=== PATIENT | female | born 1935 | race Caucasian/White ===

== ENCOUNTER 2016-06-10 17:04 | Inpatient (IN) | payer OTHER ==
[2016-06-10] MEDS ORDERED: NORMAL SALINE 10 ML SYRINGE FLUSH IVP PRN ×2 (17:17→21:52)
[2016-06-10] MEDS ORDERED: Sodium Chloride 0.9% 1,000 ML PRIMARY IV ONE (17:17)
--- NOTE | 2016-06-10 17:22 | PDOC ---
Gen Adult / Medical Screen HPI - General Chief Complaint: General Medical Stated Complaint: CANNOT CARE FOR SELF/ NOT EATING Date Seen by Provider: 06/10/16 Time Seen by Provider: 17:19 Source: POSITIVE: Patient, Other (Family) Nurse's Notes Reviewed & Considered: Yes - History of Present Illness Initial Comments: Basia is an 81-year-old female who presents to the emergency department with generalized weakness. History is obtained from both patient and family. They indicate that over the last few weeks she has had a decline. She is generally weak. There is no focal deficit. Patient was seen by her primary care provider and outpatient setting of thought to be mildly dehydrated. She has a history of severe alcohol abuse however has been abstaining since 2011. She had been started on Risperdal a few months prior and seems to have developed some repetitive lip and tongue motions along with head motion. There is no evidence of fever, cough, chest pain. Patient did describe a mild ache in her right shoulder and apparently has had a history of prior untreated shoulder dislocation. - Patient Home Medications Home Medications: Home Medications Risperidone [Risperdal] 0.5 mg PO BID #60 tab 01/16/16 - Patient Allergies Allergies/Adverse Reactions: Allergies Allergy/AdvReac Type Severity Reaction Status Date / Time No Known Allergies Allergy Verified 06/10/16 17:06 Past Medical History - heen HEENT History: Denies History Cardiovascular History: Denies History Respiratory History: Denies History Gastrointestinal History: Denies History Genitourinary History: Denies History Endocrine History: Denies History Musculoskeletal History: Denies History Prosthesis or Implant: No Neurological History: Other (please comment) 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 Blood Disorders: Denies History Psychiatric History: Denies History History of Sexually Transmitted Diseases: No Female Reproductive History: Denies History Obstetrical History: Denies History Cancer History: Denies History In Past Year Been Physically Harmed or Verbally Threatened: No History of MDRO: Unknown Tobacco Use: Never Smoker Alcohol Use: Other (History of prior heavy alcohol use. Currently abstaining.) Substance Use Type: None Previous Surgical History: Yes Type / Date of Surgery: hysterectomy Anesthesia Reactions: No Malignant Hyperthermia: No Significant Family History: No pertinent family hx Past Medical History Reviewed: Reviewed - Changes Made ROS - Limitations ROS Limitations: Mental Impairment Constitution: DENIES: Chills, Fever Cardiovascular: DENIES: Chest Pain Respiratory: REPORTS: Denies Resp Symptoms Neurological: REPORTS: Weakness Gastrointestinal: REPORTS: Denies GI Symptoms Endocrine: REPORTS: Fatigue Musculoskeletal: REPORTS: Other (Right shoulder pain) Genitourinary: REPORTS: Denies Symptoms Eyes: REPORTS: Denies Symptoms ENT: REPORTS: Other (Dry mouth) Skin: REPORTS: Denies Skin Symptoms Lympathic: REPORTS: Denies Lympathic Symptoms Gen Adult/Medical Screen Exam - General Appearance General Appearance: POSITIVE: Alert, No Acute Distress, Other (Disheveled) - HEENT HEENT: POSITIVE: Other (Patient has dry mucous membranes. Pupils are equal round reactive to light. There is repetitive movements of the mouth and tongue. ) - Pupils Pupil Size: 3 mm: Bilateral - Neck Neck: POSITIVE: Normal Inspection - Respiratory Respiratory: POSITIVE: No Respiratory Distress - Cardiovascular Cardiovascular: POSITIVE: Regular Rate & Rhythm - Abdomen Abdomen: Soft: (All Quadrants), Normal Bowel Sounds: (All Quadrants), Denies Tenderness: (All Quadrants), No Splenomegaly: (All Quadrants), No Hepatomegaly: (All Quadrants), No Guarding: (All Quadrants), No Rebound: (All Quadrants) - Neurological / Psychological Mental Status: POSITIVE: Slow Response to Command - Skin Skin: POSITIVE: Normal Color, Dry - Extremities Additional Extremities Details: Minimal discomfort to palpation of the right shoulder. There is limited range of motion of the shoulder secondary to chronic injury. No focal deficit or tenderness. Gen Adlt/Medical Scrn Progress - Results Reviewed by me Xrays/CTs/US Reviewed by me: Yes Lab Results Reviewed: Yes Lab Results:: Laboratory Results 06/10/16 Range/Units 17:30 WBC 9.85 (4.8-10.8) 10^3/uL RBC 4.90 (4.20-5.40) 10^6/uL Hgb 14.8 (12.0-16.0) g/dL Hct 43.6 (37.0-47.0) % MCV 89.0 (81-99) FL MCH 30.2 (27-31) PG MCHC 33.9 (33-37) g/dL RDW Std Deviation 45.2 (39-50) fL RDW Coeff of Jacoby 14.2 (11.5-14.5) % Plt Count 276 (140-350) 10*3/uL MPV 9.4 (7.4-12.2) FL Immature Gran % (Auto) 0.1 (0-5) % Neut % (Auto) 82.4 H (50-80) % Lymph % (Auto) 9.7 L (10-50) % [place] % (Auto) 7.0 (5-15) % Eos % (Auto) 0.6 (0-8) % Baso % (Auto) 0.2 (0-1) % Immature Gran # (Auto) 0.01 10*3/UL Neut # (Auto) 8.11 10*3/UL Lymph # (Auto) 0.96 10*3/uL [place] # (Auto) 0.69 (0.3-0.8) 10*3/UL Eos # (Auto) 0.06 10*3/UL Baso # (Auto) 0.02 10*3/UL WBC Morphology Comment Normal morphology (NORM) Plt Morphology Comment Normal morphology (NORM) RBC Morph Comment Normal morphology (NORM) Sodium 140 (135-145) meq/L Potassium 4.1 (3.8-5.2) meq/L Chloride 103 (98-112) meq/L Carbon Dioxide 24 (23-33) meq/L Anion Gap 13 (5-20) BUN 21 (7-22) mg/dL Creatinine 0.7 (0.50-1.20) mg/dL Estimated GFR (>60 ml/min/1.73m(2)) BUN/Creatinine Ratio 30.00 H (6-20) Glucose 153 H (78-110) mg/dL Calculated Osmolality 295.0 H (267-292) mOsm/kg Calcium 9.7 (8.7-10.7) mg/dL Magnesium 2.0 (1.6-2.4) mg/dL Total Bilirubin 0.6 (0.3-1.2) mg/dL AST 22 (8-39) IU/L ALT 17 (9-52) IU/L Alkaline Phosphatase 46 (38-126) IU/L Troponin I < 0.012 (< 0.040) ng/mL Total Protein 7.2 (6.1-8.0) g/dL Albumin 4.0 (3.5-4.8) g/dL Globulin 3.1 (2.50-4.10) g/dL Albumin/Globulin Ratio 1.20 L (1.3-2.0) mg/g - Patient's Progress MDM / ED Course: Basia is an 81-year-old female who presents to the emergency department for generalized weakness. Her vital signs are unremarkable and examination demonstrates elderly dehydrated appearing female. Differential diagnosis includes but is not limited to urinary tract infection, ACS, shoulder injury, chronic pain, failure to thrive. Patient's urinalysis is pending at this time. Otherwise laboratory studies are largely reassuring. She was given a bolus of normal saline. X-ray of the right shoulder demonstrates dislocation which per the family this is chronic and untreated. Twelve-lead EKG and troponin were both negative for acute ischemia. Patient did have movements of her face and tongue which are concerning for tardive dyskinesia. She is on an antipsychotic medication which puts her at risk for this. This appears to be a subacute problem. Given patient's failure to thrive status and inability to care for herself at her apartment she will be admitted for further care. I spoke with the hospitalist who will take over care from this point. - Consult Consult (If Yes, Name of Consulting MD & Time Called): Yes (Fars) Consulting MD will see pt:: POSITIVE: [facility] [place] Admit Patient Care Time - Estimated PCT Patient Care Time (In Minutes): 45 Vital Signs - Recent Vital Signs Vital Signs: Vital Signs (Last 8 hours) Temp Pulse Pulse Resp BP Pulse Ox 06/10/16 17:31 94 06/10/16 17:06 97.0 F 117 H 16 152/73 92 - VS Reviewed Vital Signs Reviewed: Yes Discharge Clinical Impression: Failure to thrive Qualifiers: Failure to thrive age range: in adult Qualifier Code: (R62.7) Adult failure to thrive Discharge Disposition: Admit to Observation Condition: Fair Date Decision to Admit to Inpatient: 06/10/16 Time Decision to Admit to Inpatient: 18:38
--- NOTE | 2016-06-10 17:34 | EKG ---
[address] [address] Measurements Intervals [place] Rate: 94 P: 88 ME: 145 QRS: 81 QRSD: 72 T: 59 QT: 324 QTc: 376 Interpretive Statements SINUS RHYTHM NONSPECIFIC ST & T-WAVE ABNORMALITY MARKED 60 CYCLE ARTIFACT No previous ECG available for comparison Electronically Signed On 06-11-16 12:28:39 MDT by Raheem Maya [email or web address]
[2016-06-10 17:44] LABS: BASOPHILS # (AUTO) 0.02 10*3/UL; BASOPHILS % (AUTO) 0.2 % (0-1); EOSINOPHILS # (AUTO) 0.06 10*3/UL; EOSINOPHILS % (AUTO) 0.6 % (0-8); HEMATOCRIT 43.6 % (37.0-47.0); HEMOGLOBIN 14.8 g/dL (12.0-16.0); LYMPHOCYTES # (AUTO) 0.96 10*3/uL; MEAN CORPUSCULAR HEMOGLOBIN 30.2 PG (27-31); MEAN CORPUSCULAR HGB CONC 33.9 g/dL (33-37); MEAN PLATELET VOLUME 9.4 FL (7.4-12.2); MONOCYTES # (AUTO) 0.69 10*3/UL (0.3-0.8); NEUTROPHILS # (AUTO) 8.11 10*3/UL; NEUTROPHILS % (AUTO) 82.4 % (50-80)
[2016-06-10 17:52] LABS: PLATELET MORPHOLOGY COMMENT NORMAL MORPHOLOGY (NORM); RBC MORPHOLOGY COMMENT NORMAL MORPHOLOGY (NORM); WBC MORPHOLOGY COMMENT NORMAL MORPHOLOGY (NORM)
[2016-06-10 17:57] LABS: CALCIUM 9.7 mg/dL (8.7-10.7)
--- NOTE | 2016-06-10 19:37 | DI ---
RIGHT SHOULDER, 06/10/2016 5:23 PM: Clinical History: Right shoulder pain. Previous Exam: 08/28/2008, which was actually a 2 view study of the right humerus. 2 views are submitted. There is an anterior subcoracoid dislocation of the right humeral head. The AC joint and the limited views of the right lung are normal. There is osteoporosis. Readin. Anterior subcoracoid dislocation of the right humerus. 2. Osteoporosis.
--- NOTE | 2016-06-10 20:24 | PDOC ---
History and Physical - History of Present Illness Chief Complaint: Failure to thrive weakness History of Present Illness: Is a very nice 81-year-old female with past medical history significant for heavy alcohol abuse in the past she has been sober since 2011 but according to the daughter her memory has worsened over the years and really unable to function as well as she did she helps her with her food and she only uses the microwave. She does not complain of any nausea vomiting pain. She has generalized weakness and therefore was brought to the ER he was started on Risperdal a few months prior she seems to have developed some repetitive the mouth motions with opening her mouth and her lips patient has no evidence of any acute findings and her labs she does have chronic right shoulder pain and this is been chronically dislocated but she does not complain of this right now she is a DO NOT RESUSCITATE. She is not able to give a good history at all answers a few questions Past Medical History Medical History: Remote history of alcohol abuse, dementia Tobacco Use: Never Smoker Substance Use Type: None Alcohol Use: Sober Medication / Allergies Home Medications: Home Medications Medication Instructions Recorded Confirmed Type Risperidone [Risperdal] 0.5 mg PO BID #60 tab 01/16/16 06/10/16 Clinic Allergies/Adverse Reactions: Allergies Allergy/AdvReac Type Severity Reaction Status Date / Time No Known Allergies Allergy Verified 06/10/16 17:06 Review of Systems - Review of Systems All Systems: Reviewed & No Additional Complaints Except as Stated - Respiratory Respiratory: DENIES: Negative System Review, Cough, Sputum, Dyspnea At Rest, Dyspnea with Exertion, Pleuritic Pain, Hemoptysis, Wheezing, Other, See HPI - Gastrointestinal Gastrointestinal / Abdominal: DENIES: Negative System Review, Nausea, Vomiting, Diarrhea, Constipation, Abdominal Pain, Bloody Stool, Poor Appetite, Heartburn, Regurgitation, Bloating, Lactose Intolerance, Melena, Bright Red Blood Per Rectum, Other, See HPI - Neurological Neurologic: REPORTS: Memory Loss Exam - Vitals Vital Signs: Vital Signs Temperature 98.4 F Temperature Source Temporal Artery Scan Pulse Rate [Pulse Oximeter 67 Right] Pulse Rate 76 Respiratory Rate 22 Blood Pressure 137/77 Pulse Ox 93 Oxygen Delivery Method Room Air Height 5 ft 7 in Weight 54.068 kg - General General Appearance: POSITIVE: No Acute Distress, Cooperative - Head Head Exam: POSITIVE: Normal Inspection, Normocephalic, Atraumatic - Respiratory Respiratory Exam: POSITIVE: Clear to Auscultation - Bilaterally, Breathing Non Labored, Normal To Percussion, Normal to Percussion and Palpation - Cardiovascular Cardiovascular Exam: POSITIVE: RRR, No Murmur, No Clicks, No Gallops - GI/Abdominal GI/Abdominal Exam: POSITIVE: Normal Bowel Sounds, Non Tender, Non Distended, Soft - Extremities Extremities Exam: POSITIVE: No Clubbing Present, No Edema Present, No Cyanosis Present - Neurological Neurological Exam: POSITIVE: Alert, No Facial Droop Additional Neurological Exam Details: Repetitive the mouth and tongue movements does not talk much Results - Labs CBC and BMP: 06/10/16 17:30 06/10/16 17:30 Assessment and Plan - Patient Problems (1) Failure to thrive Current Visit: Yes Status: Acute Comment: Consult PTOT hydrate with IV fluids Qualifiers: Failure to thrive age range: in adult Qualifier Code(s): (R62.7) Adult failure to thrive (2) History of alcohol abuse Current Visit: Yes Status: Acute Comment: Sober since 2011 january Aaron Photo / Body Diagrams - Uploaded Photos Uploaded Photos:
[2016-06-10] MEDS ORDERED: ONDANSETRON 4 MG/2 ML VIAL IVP PRN (21:52)
[2016-06-10] MEDS ORDERED: LIDOCAINE W/ SODIUM BICARB 0.5 ML SYR SUBD PRN (21:52)
[2016-06-10] MEDS ORDERED: HYDROcodone-APAP 5 MG -325 MG TABLET PO PRN (21:52)
[2016-06-10] MEDS ORDERED: BISACODYL 5 MG TABLET PO PRN (21:52)
[2016-06-10] MEDS: Sodium Chloride 0.9% 1,000 ML PRIMARY IV SCH (22:21)
[2016-06-11] MEDS: Sodium Chloride 0.9% 1,000 ML PRIMARY IV SCH ×2 (05:36→14:52)
--- NOTE | 2016-06-11 11:46 | PTI REPORT ---
Thank you for the referral of Basia Trujillo. She was seen on 06/11/16 for an inpatient evaluation secondary to failure to thrive. SUBJECTIVE: The patient is an 81-year-old female. The patient reports her right arm is bothering her; she is right handed and has the IV placed there. The patient states she fell at her daughter's house, landing on her right arm a long time ago and it has been aching since. The patient denies any pain at this time. The patient states she lives alone at the [facility]. She states she does not cook; she eats mostly TV dinners but has no appetite. She has someone that comes and helps clean, bathe, and complete ADLs and laundry. The patient also reports having falling multiple times with the most recent happening February 29, 2016. The patient denies hitting her head or fractures. PAST MEDICAL HISTORY: Past medical history can be found in the patient's medical record. OBJECTIVE FINDINGS: General observations: The patient states she gets mildly confused at times but is alert and oriented x3. Range of motion: Range of motion of bilateral lower extremities are within functional limits. Strength: Manual muscle testing revealed 3/5 bilateral hip strength, 2+/5 bilateral hip abduction and adduction, knee extension and flexion were 3/5 throughout, and dorsiflexion was 3+/5 on the right and 3/5 on the left. Transfers: The patient was able to complete sit to stand transfer from chair to four point walker with contact guard assist. Ambulation: The patient was able to ambulate 80 feet with contact guard assist and four point walker. Balance: The patient has good minus sitting static balance and good minus standing static balance. The patient was able to complete a Romberg of 30 seconds with eyes open. ASSESSMENT: The patient has subjective and objective findings consistent with generalized weakness and would benefit from continued skilled therapy and consultation for possible skilled care facility for long term care phlebotomist placement. Short-Term Goals: To be met by discharge from inpatient: Patient will be able to demonstrate 3/5 bilateral lower extremity strength throughout. Patient will be able to complete sit to stand transfer with least restrictive assistive device and supervision. Patient will be able to ambulate 150 feet with least restrictive assistive device and contact guard assist. Long-Term Goals: To be met following discharge from inpatient: Patient will demonstrate 3+ to 4/5 bilateral lower extremity strength for safety with transfers and ambulation. Patient will be able to complete all transfers with independence to least restrictive assistive device. Patient will be able to ambulate 300 feet for community ambulation with least restrictive assistive device. TREATMENT PLAN: Patient will be seen B.I.D during the week and one time per day over the weekend as an inpatient to address the above goals and objectives. INITIAL TREATMENT: Treatment today consisted of the initial evaluation with occupational therapy. The patient performed ambulation, range of motion, and manually resisted activities. Ambulation was with four point walker and contact guard assist. The patient was left in her room with call button within reach in no apparent distress. Nursing was notified. TISHA
--- NOTE | 2016-06-11 12:04 | PDOC(PROG) ---
Interval History: Patient is doing great today much better than yesterday she is speaking in full sentences has no complaints no nausea vomiting chest pain she has been falling at home does not feel safe to be discharged home and would like to go the skilled nursing at this point Objective : Data - Labs CBC and BMP: 06/10/16 17:30 06/10/16 17:30 Objective : Exam - General General Appearance: Cooperative - Neck Neck Exam: Normal Inspection, Full ROM - Respiratory Respiratory Exam: Clear to Auscultation - Bilaterally, Breathing Non Labored, Normal To Percussion - Cardiovascular Cardiovascular Exam: RRR, No Murmur, No Clicks, No Gallops - GI/Abdominal GI/Abdominal Exam: Normal Bowel Sounds, Non Tender, Non Distended, Soft - Extremities Extremities Exam: No Clubbing Present, No Edema Present - Neurological Neurological Exam: Alert, Oriented x 3, CN II-XII Intact Assessment and Plan - Patient Problems (1) Failure to thrive Current Visit: Yes Status: Acute Comment: Patient unable to take care of herself at home social media campaign manager was consult did do for possible skilled nursing admission patient is not in any pain and is doing well this morning Qualifiers: Failure to thrive age range: in adult Qualifier Code(s): (R62.7) Adult failure to thrive (2) History of alcohol abuse Current Visit: Yes Status: Acute Comment: Patient has been sober since 2011 Photo / Body Diagrams - Uploaded Photos Uploaded Photos:
--- NOTE | 2016-06-11 16:25 | PT.PROG ---
Progress Note Progress Note: S. Patient agreed to do therapy this afternoon. O. Patient performed exercises in the form of; heel toe raises, marches, long arc quads, pillow squeezes and clamshells all x 10 bilaterally, sit to stands x 5. Patient ambulated 30 feet around her room where she was left in bed with alarm and call light. A. Patient required frequent verbal cues for encouragement. She required mod assist with sit to stand transfers and ambulation. Patient would continue to benefit from skilled therapy to increase strength, mobility and endurance. P. continue POC.
[2016-06-11] MEDS ORDERED: NS IV ONE ×5 (20:00)
[2016-06-11] MEDS ORDERED: KCL IV ONE ×5 (20:00)
[2016-06-11] MEDS ORDERED: [UNRECOGNIZED DRUG - OTHER] IV ONE ×5 (20:00)
[2016-06-11] MEDS ORDERED: FOLIC ACID IV ONE ×5 (20:00)
[2016-06-11] MEDS ORDERED: THIAMINE IV ONE ×5 (20:00)
[2016-06-11] MEDS: BENZTROPINE 1 MG TABLET PO SCH (20:56)
[2016-06-11] MEDS: QUEtiapine Tab 25 MG TAB PO SCH (20:58)
[2016-06-12] MEDS: BENZTROPINE 1 MG TABLET PO SCH ×2 (09:25→20:59)
[2016-06-12 09:53] LABS: BASOPHILS # (AUTO) 0.04 10*3/UL; BASOPHILS % (AUTO) 0.5 % (0-1); EOSINOPHILS # (AUTO) 0.18 10*3/UL; EOSINOPHILS % (AUTO) 2.2 % (0-8); HEMATOCRIT 44.2 % (37.0-47.0); HEMOGLOBIN 14.8 g/dL (12.0-16.0); LYMPHOCYTES # (AUTO) 0.82 10*3/uL; MEAN CORPUSCULAR HEMOGLOBIN 30.2 PG (27-31); MEAN CORPUSCULAR HGB CONC 33.5 g/dL (33-37); MEAN CORPUSCULAR VOLUME 90.2 FL (81-99); MEAN PLATELET VOLUME 9.2 FL (7.4-12.2); MONOCYTES # (AUTO) 0.62 10*3/UL (0.3-0.8); MONOCYTES % (AUTO) 7.5 % (5-15); NEUTROPHILS # (AUTO) 6.55 10*3/UL; NEUTROPHILS % (AUTO) 79.7 % (50-80)
[2016-06-12 09:56] LABS: PLATELET MORPHOLOGY COMMENT NORMAL MORPHOLOGY (NORM); RBC MORPHOLOGY COMMENT NORMAL MORPHOLOGY (NORM); WBC MORPHOLOGY COMMENT NORMAL MORPHOLOGY (NORM)
[2016-06-12 10:02] LABS: CALCIUM 8.6 mg/dL (8.7-10.7); SERUM ALBUMIN 3.8 g/dL (3.5-4.8)
--- NOTE | 2016-06-12 11:41 | PT.PROG ---
Progress Note Progress Note: S. Patient stated that she is feeling better after having a shower. Patient agreed to do therapy in her room this morning. O. Patient performed seated long arc quads, heel toe raises, marches, pillow squeezes, clamshells, resisted knee flexion all x 10 bilaterally. Sit to stands x 10. Patient was left in her chair with alarm and call light. A. Patient tolerated exercises well, she continues to require min-mod assist with transfers and would continue to benefit from skilled therapy to increase strength and mobility. P. Continue POC.
--- NOTE | 2016-06-12 11:49 | PDOC(PROG) ---
Interval History: Patient seems to be doing better I believe even with her tardive dyskinesia. I did discuss the case with the occupational therapy her swallowing seems to be improving as well she still has memory issues and dementia but is pleasant and cooperative Objective : Data - Labs CBC and BMP: 06/12/16 09:46 06/12/16 09:46 Labs - Last 24 Hours: Laboratory Results 06/12/16 Range/Units 09:46 WBC 8.22 (4.8-10.8) 10^3/uL RBC 4.90 (4.20-5.40) 10^6/uL Hgb 14.8 (12.0-16.0) g/dL Hct 44.2 (37.0-47.0) % MCV 90.2 (81-99) FL MCH 30.2 (27-31) PG MCHC 33.5 (33-37) g/dL RDW Std Deviation 46.4 (39-50) fL RDW Coeff of Jacoby 14.3 (11.5-14.5) % Plt Count 264 (140-350) 10*3/uL MPV 9.2 (7.4-12.2) FL Immature Gran % (Auto) 0.1 (0-5) % Neut % (Auto) 79.7 (50-80) % Lymph % (Auto) 10.0 (10-50) % [place] % (Auto) 7.5 (5-15) % Eos % (Auto) 2.2 (0-8) % Baso % (Auto) 0.5 (0-1) % Immature Gran # (Auto) 0.01 10*3/UL Neut # (Auto) 6.55 10*3/UL Lymph # (Auto) 0.82 10*3/uL [place] # (Auto) 0.62 (0.3-0.8) 10*3/UL Eos # (Auto) 0.18 10*3/UL Baso # (Auto) 0.04 10*3/UL WBC Morphology Comment Normal morphology (NORM) Plt Morphology Comment Normal morphology (NORM) RBC Morph Comment Normal morphology (NORM) Sodium 143 (135-145) meq/L Potassium 4.0 (3.8-5.2) meq/L Chloride 108 (98-112) meq/L Carbon Dioxide 26 (23-33) meq/L Anion Gap 9 (5-20) BUN 14 (7-22) mg/dL Creatinine 0.7 (0.50-1.20) mg/dL Estimated GFR (>60 ml/min/1.73m(2)) BUN/Creatinine Ratio 20.00 (6-20) Glucose 76 L (78-110) mg/dL Calculated Osmolality 295.0 H (267-292) mOsm/kg Calcium 8.6 L (8.7-10.7) mg/dL Total Bilirubin 0.5 (0.3-1.2) mg/dL AST 22 (8-39) IU/L ALT 17 (9-52) IU/L Alkaline Phosphatase 45 (38-126) IU/L Total Protein 6.8 (6.1-8.0) g/dL Albumin 3.8 (3.5-4.8) g/dL Globulin 3.1 (2.50-4.10) g/dL Albumin/Globulin Ratio 1.20 L (1.3-2.0) mg/g TSH 4.13 (0.2700-4.2000) uIU/mL Objective : Exam - General General Appearance: Cooperative - Head Head Exam: Normocephalic, Atraumatic - Eye Eye Exam: EOMI - Respiratory Respiratory Exam: Clear to Auscultation - Bilaterally, Breathing Non Labored, Normal To Percussion - Cardiovascular Cardiovascular Exam: RRR, No Murmur, No Clicks, No Gallops - GI/Abdominal GI/Abdominal Exam: Non Tender, Non Distended, Soft - Extremities Extremities Exam: No Clubbing Present, No Edema Present, No Cyanosis Present - Psychiatric Psychiatric Exam: Normal Mood Assessment and Plan - Patient Problems (1) Failure to thrive Current Visit: Yes Status: Acute Qualifiers: Failure to thrive age range: in adult Qualifier Code(s): (R62.7) Adult failure to thrive (2) History of alcohol abuse Current Visit: Yes Status: Acute (3) 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 Deni ann psychiatry at [facility] most likely severe dysphasia that the patient has might be due to the Risperdal recommended to stop it give the patient Cogentin and start Seroquel 25 to be at bedtime I did ask the patient she does not remember that she has schizophrenia looking back in the records I cannot see a psychiatry visit diagnosis of this I did see she was put on Risperdal some years back by a physician there is no longer here she was not doing as well and they decided to restart the Risperdal. Patient is unable take care of herself any longer and is awaiting placement for [facility] I am given her vitamins banana bags I did check her thyroid which was in normal limits I also ordered a B12 level Photo / Body Diagrams - Uploaded Photos Uploaded Photos:
--- NOTE | 2016-06-12 12:10 | OT.PROG ---
Progress Note Progress Note: S: pt stated she wanted a shower. O: pt seen in her room in the a.m. and completed ADL dressing with Min-Mod A and completed transfer to restroom with CGA for safety. She completed all toileting Ind and ADL hygiene at sink Ind. She returned to her chair and completed UE AROM activities including shoulder flex, bicep flex, and completed x3 sit to stands. Pt was also assisted with adjustments of walker. pt was left in chair with with chair alarm on. A: pt participated well, continue to work on balance/strengthening and swallowing. Preparation for admission to [facility]. P: continue per plan of care.
--- NOTE | 2016-06-12 14:20 | PT.PROG ---
Progress Note Progress Note: S. Patient stated that she was not feeling up to going to therapy this afternoon , she reported she would do exercises in her room. O. Patient performed supine exercises in the form of; heel slides, quad sets, ankle pumps, short arc quads, hip abduction/adduction, and bridges all x 10 bilaterally. Patient was left in bed with alarm and call light. A. Patient tolerated exercises fair, She continues to struggle with weakness and immobility. Patient would continue to benefit from skilled therapy to increase strength, mobility and endurance. P. Continue POC.
--- NOTE | 2016-06-12 16:09 | OTI REPORT ---
Thank you for the referral of Basia Trujillo. She was seen on 06/11/16 for an occupational therapy inpatient evaluation secondary to generalized weakness. SUBJECTIVE: The patient is an 81-year-old female. The patient's medical report states that the patient abused alcohol for most of her life and quit drinking approximately five years ago. The patient's daughter has stated that the patient is having increased memory difficulties. The patient reports that she lives at the [facility]. She reports that she is having increased falls at home. She states she is scared to live by herself and she states she is having increased difficulty living by herself. The patient repots that she usually eats frozen dinners but reports difficulty eating them because food gets stuck in her throat. The patient has difficulty using utensils as her arms shake so bad that she can't hold the food onto her fork or spoon at times. The patient also fell down the stairs at her daughter's house and dislocated her shoulder at one point in time. She reports that her toes and her fingers are numb. The patient also reports that she has increased blurriness in her eyes and she is having a lot of increased difficulty being able to see. She says that her daughter sets up her medications to take on a weekly basis but because of her shakiness in her hands, she drops her medications frequently. She states at times she is able to take them and at times she cannot find them. In her home the patient has assistance with house cleaning and bathing. Her daughter gets her groceries and she has someone else drive her to other places such as her daughter's home. The patient is definitely having difficulties at home. She states that she is very open to going to a 24-hour care facility such as [facility] because she knows at this point in time it is difficult for her to care for herself and she is scared that she is going to continue to fall in her home. The patient usually uses a four wheeled walker with a seat, but she says even when trying to turn in that she has fallen. PAST MEDICAL HISTORY: Past medical history can be found in the patient's medical record. OBJECTIVE FINDINGS: General observations: Today the patient demonstrated a lot of tardive dyskinesia ; tremors and movements of her neck, face, and tongue as well as her upper extremities. Just sitting in chair the patient was not able to hold still. She moves constantly. Range of motion: The patient demonstrated limited motion in her shoulder. She had 0 to 60 degrees of active flexion and 0 to 40 degrees of abduction. Passively the therapist was able to get the shoulders to 90 degrees and there was a lot of crepitus and popping secondary to arthritis. The patient has within functional limits for elbow flexion but is lacking 20 degrees of elbow extension in bilateral elbows. Her wrists have approximately 50% of active range of motion. Strength: Strength in her shoulders within her available range of motion is 2+/ 5. Strength for elbow flexion/extension is 3/5. Strength for wrist flexion/ extension is 3+/5. The patient has limited retail merchandising manager strength. She is able to oppose her thumb to each fingers but it takes increased time secondary to her tardive dyskinesia. Transfers: The patient was able to complete sit to stands with contact guard to min assist. Activities of daily living: The patient has difficulty with dressing herself secondary to the tremors. At this point the patient requires mod assist for lower extremity dressing. She requires min assist for upper extremity dressing. ASSESSMENT: Problem List: Decreased strength Decreased range of motion Decreased balance Decreased ability to perform transfers Decreased ability to perform ADLs Patient would benefit from a swallow assessment as she has reported difficulty with her swallowing Patient would benefit from cognitive assessment as she is demonstrating a decrease in cognitive function per her daughter's report Short-Term Goals: To be met by discharge from inpatient: Patient will be able to dress self independently after set up. Patient will have a swallow evaluation completed. Patient will be able to feed herself independently. Patient will be able to complete hygiene activities while standing without loss of balance independently. Patient will be able to complete functional fine motor tasks independently or with modified independence as the patient does have a lot of tremors. Patient will be able to complete a toilet transfer independently. Patient will shower self with contact guard assist. Long-Term Goals: To be met following discharge from inpatient: Patient will be discharged to a 24-hour care facility to improve her safety. TREATMENT PLAN: Patient will be seen B.I.D during the week and one time per day over the weekend as an inpatient to address the above goals and objectives. INITIAL TREATMENT: Treatment today consisted of the initial evaluation followed by active range of motion of shoulders, elbows, and wrists x10. We attempted lower extremity dressing; the patient required mod assist secondary to poor balance. The patient had difficulty donning socks. The patient also completed bed mobility with mod assist. TISHA
--- NOTE | 2016-06-12 16:59 | OTI REPORT ---
Thank you for the referral of Basia Trujillo. She was seen on 06/11/16 for a swallow evaluation. SUBJECTIVE: The patient is an 81-year-old female who is being seen today for a swallow evaluation secondary to verbalizing earlier today that she was having a lot of difficulty swallowing her food. She reports that food gets stuck in her throat. She does not eat full meals as she is not able to swallow all of it. Also, she is having pre-feeding concerns as the patient reports that food falls off of her fork and spoon quite frequently because of the tremors that she is demonstrating. PAST MEDICAL HISTORY: Past medical history can be found in the patient's medical record. OBJECTIVE FINDINGS: Pre-Swallow Assessment: Alertness and responsiveness: The patient was alert and responsive. Reliable responses: It was questionable whether the patient's responses were reliable. Facial symmetry: The patient did demonstrate facial symmetry. Volitional dry swallow: The patient did demonstrate a volitional dry swallow. Following directions: The patient was able to follow one step directions but not two step directions. Nutrition and intake method over the last 24-hours: This has been hard to assess at the patient's house. She reports that she does not eat well. Secretions: The patient did demonstrate some drooling on the right side of her mouth and had difficulty handling some of her secretions. Dentition: The patient has dentures on the top but does not have dentures on the bottom. Voice quality: The patient's voice quality is quite weak. She is very soft spoken but she also has difficulty answering questions secondary to the tardive dyskinesia. Posture: The patient demonstrates good posture; however, she is always in high muscle tone because of the tardive dyskinesia and the tremors that she is demonstrating. You can see the muscles of her neck being continually contracted. Tongue range of motion/Strength: The patient's tongue range of motion and strength are poor. Her tongue demonstrates rolling at times and she has difficulty moving it to the lateral components of the mouth. Coordination: The patient's coordination is poor. Head control: The patient's head control is very poor. She hash continuous movement of neck flexion and extension that does not stop and she is not able to consciously make her head stop. Jaw mobility: Jaw mobility is fair to poor. Her jaw is constantly moving as well as she opens and closes her mouth. Lip control: Lip control is fair. She did demonstrate some drooling out of the right side of her mouth. The patient has poor lingual function, not only for speaking but also for coordination of chewing food. Sensation: Sensation was difficult to assess as the patient did not give good responses to this. Gag reflex: The patient's gag reflex was hypo-active. General observations: The patient does demonstrate some apraxia and possible tardive dyskinesia. The patient was a willing participating and was willing to try any task asked of her today during the assessment. Feeding Assessment: The patient's automatic swallow was impaired. It takes her a while to get the bolus prepared to swallow. Laryngeal elevation is missing approximately 25% of superior movement. Today the staff had ordered the patient lunch including chicken strips, mashed potatoes and gravy, and ice cream. The patient reported that she was not able to eat the chicken strips as she would not be able to chew and swallow this. The therapist brought in some weighted silverware. The patient reported that this helped her immensely in decreasing the tremors and keeping the food on her fork and or spoon. Cut up hamburger with gravy was ordered. The hamburger was cut in 1-1.5 inch cubes. On the first attempt to swallow the meat the patient coughed and choked on the meat. She actually lost a little bit of breath. The therapist almost had to do the Heimlich maneuver. The patient was asked to do an effortful swallow and to take a quick swallow of thin liquid and then swallow hard. The patient reported that the meat did clear after five attempts. The therapist broke up the meat into ground hamburger consistency. With the gravy, the patient was able to scoop the hamburger with the weighted spoon and was able to take small bites and did well with this. If the patient took larger bites, she said that it was too much. The patient was encouraged to take drinks in between swallows. The patient did not demonstrate external signs of aspiration with thin liquid; no coughing or choking was present. It did help clear the bolus in the pharyngeal area. ASSESSMENT: Medications should be crushed and served with a puree. The patient is able to self feed if she is set up appropriately and with weighted silverware. The rate of the patient's swallow was slow. It is questionable whether the patient' s swallow is adequate for PO intake. We will go with the following recommendations to see if this increases the patient's nutrition and abilities. RECOMMENDATIONS: 1. The patient can be on thin liquids; however, because of the patient having no dentures as well as her extraneous movement from tardive dyskinesia, the patient needs all food chopped quite finely. She needs all meats served with gravy; if there is any type of dry food, it needs to be moistened with gravy or another type of dressing. 2. The patient should be on a mechanical soft diet. 3. Medication should be crushed and served with a puree. 4. The patient needs to be upright for all meals and liquid intake. 5. The patient should have oral care after each intake. 6. The patient should eat one bite at a time and should alternate bites with food and liquid. 7. The patient would benefit from the weighted silverware. She also needs a coffee cup with a handle so that she can grasp the cup better. The patient would benefit from a scoop plate so that she can scoop her food against the plate as she does not use her left upper extremity frequently during meal times. Dr. Ayala and the patient's nurse were informed of the results and recommendations. SWALLOW GOALS: Patient will eat 100% of her selected diet without external signs of aspiration , being able to swallow all of her meal safely. Patient and caregivers will follow safety precautions 100% of the time independently. Patient and caregivers will use correct positioning 100% of the time when observed eating by OT. INITIAL TREATMENT: Treatment today consisted of the swallow evaluation only. TISHA
[2016-06-12] MEDS: QUEtiapine Tab 25 MG TAB PO SCH (20:56)
[2016-06-13] MEDS ORDERED: Influenza 16-17 Vaccine(4yrs+) 45 MCG/0.5 ML SYRINGE IM ONE (09:00)
[2016-06-13] MEDS: BENZTROPINE 1 MG TABLET PO SCH ×2 (09:02→20:17)
--- NOTE | 2016-06-13 10:03 | PT.PROG ---
Progress Note Progress Note: S: pt reports she is agreeable to PT as long as it is in her room. pt reports she enjoys to walk. O: nsg okay'd prior to PT. pt instructed in BLE open chain strengthenin LAQs x 2#, seated marches 2# x 10 reps, clams RTB x 20, pillow squeezes x 10 reps, hamstring curls x 10 RTB each. 10 sit to stands w CGA x 1 for safety and mod cues for technique. poor descent control. pt instructed in 3# bicep curls x 10 each, around the clocks x 10 RTB, and rows ra RTB x 10 reps. Pt instructed to ambulate 150 feetx 2 reps with seated rest break between with FWW and CGA x1 for safety and balance. demo 2 LOB but able to self correct. Pt returned to room with chair alarm activated and call light within reach. A: pt tolerated therapy fair today. tolerated increase in activity. pt demo very dyskinetic movement patterns. continues to benefit from skilled therapy. P: cont Per POC
--- NOTE | 2016-06-13 11:35 | PDOC(PROG) ---
Interval History: I believe the patient is doing a little better less the dyskinesia movements she has no complaints she is swallowing the little better with the modified food as well. 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
[2016-06-13] MEDS: QUEtiapine Tab 25 MG TAB PO SCH (20:17)
[2016-06-14] MEDS: BENZTROPINE 1 MG TABLET PO SCH ×2 (09:27→20:33)
--- NOTE | 2016-06-14 12:15 | PT.PROG ---
Progress Note Progress Note: S: pt reports she is agreeable to PT today. O: nsg okay'd prior to PT. pt instructed to ambulate 300 ft to therapy gym. pt instructed to perform UBE 5 minutes with rest break at 2 mins. Nu step x 5 minutes. with seated rest break . pt instructed to ambulate 300 ft back to room and was left in room with chair alarm activated and call light within reach. A: pt tolerated therapy well today, pt tolerated increase in activity. very poor coordination and difficulty turning. continues to benefit from skilled services. P: cont per POC.
--- NOTE | 2016-06-14 14:12 | PDOC(PROG) ---
Interval History: Drastic improvement today patient started dyskinesia has improved greatly her speech is clear less movements she is sleeping well at night no complaints Objective : Data - Labs CBC and BMP: 06/12/16 09:46 06/12/16 09:46 Objective : Exam - General General Appearance: Cooperative - Respiratory Respiratory Exam: Clear to Auscultation - Bilaterally, Breathing Non Labored, Normal To Percussion - Cardiovascular Cardiovascular Exam: RRR, No Murmur, No Clicks, No Gallops - GI/Abdominal GI/Abdominal Exam: Normal Bowel Sounds, Non Tender, Non Distended, Soft Assessment and Plan - Patient Problems (1) 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 Patient has a remote diagnosis of schizophrenia but I cannot find who diagnosed her I believe she is doing much better off the Risperdal she has had no abnormal behavior or aggression since in the hospital (2) Failure to thrive Current Visit: Yes Status: Acute Comment: Awaiting placement in alf social service consult Qualifiers: Failure to thrive age range: in adult Qualifier Code(s): (R62.7) Adult failure to thrive (3) History of alcohol abuse Current Visit: Yes Status: Acute Photo / Body Diagrams - Uploaded Photos Uploaded Photos:
[2016-06-14] MEDS: QUEtiapine Tab 25 MG TAB PO SCH (20:33)
[2016-06-15] MEDS: BENZTROPINE 1 MG TABLET PO SCH ×2 (08:46→20:34)
--- NOTE | 2016-06-15 10:57 | OT PM DAY ---
Diagnosis : Weakness PM - Occupational Therapy S: The patient reports that her diet is going better. Dr. Ayala wanted the therapist to assess whether the changes in medicine had any affect on her swallowing. O: The patient still demonstrated extreme tardive dyskinesia. She had chopped fish, vegetables, and mashed potatoes as well as ice cream and apple juice. The patient used the built up silverware to eat and was able to eat 25% of her meal independently. The patient said that she was full after this. A: Overall the patient is doing well with the recommended diet. She is able to feed herself with the built up silverware with increased independence. P: Continue seeing patient BID during the week and one time per day over the weekend until discharge. TISHA
--- NOTE | 2016-06-15 11:31 | PT.PROG ---
Progress Note Progress Note: S. Patient agreed to go to the therapy gym. O. Patient ambulated 175 feet to the therapy gym where she used the nu-step x 5 minutes then ambulated 175 feet back to her room where she performed exercises in the form of; long arc quads, heel toe raises, Bridges all x 10. Patient was left in bed with alarm and call light. A. Patient tolerated exercises well this morning. She was over stimulated in the therapy clinic and was unable to stay in the clinic for therapy this morning. Patient requires CGA with transfers and ambulation. She would continue to benefit from skilled therapy at this time. P. Continue POC.
--- NOTE | 2016-06-15 14:16 | PDOC(PROG) ---
Date and Time of Service: 06/15/2016, 1413 Interval History: No completes of chest pain or shortness breath. I saw the patient earlier and she had her lunch almost completely eaten. No choking or coughing. No nausea or vomiting. The tardive dyskinesia, although still present, is improved in terms of her motions, ability to eat, and swallow. I will have a cognitive assessment done as well as I am not sure that any symptoms here are truly related to schizoaffective or schizophrenia. It is possible that the patient had schizophrenia in the past but generally at 81, dementia is certainly in the differential and could give all of the same symptoms as have been described both as an outpatient and inpatient setting. Continue Cogentin. Objective : Data - Labs CBC and BMP: 06/12/16 09:46 06/12/16 09:46 Objective : Exam - General General Appearance: No Acute Distress, Cooperative Additional General Exam Details: Vital Signs - Last Taken Temperature 97.8 F 06/15/16 11:06 Pulse Rate 71 06/15/16 11:06 Respiratory Rate 18 06/15/16 11:06 Blood Pressure 130/50 06/15/16 11:06 Pulse Ox 94 06/15/16 11:06 On room air oxygen - Head Head Exam: Normal Inspection, Normocephalic, Atraumatic Additional Head Exam Details: Several facial tics. Some lip smacking movements - Eye Eye Exam: No Scleral Icterus - Respiratory Respiratory Exam: Clear to Auscultation - Bilaterally, Breathing Non Labored - Cardiovascular Cardiovascular Exam: RRR, No Murmur, No Clicks, No Gallops, No Rubs, No JVD - GI/Abdominal GI/Abdominal Exam: Normal Bowel Sounds, Non Tender, Non Distended, Soft - Extremities Extremities Exam: No Clubbing Present, No Edema Present, No Cyanosis Present - Neurological Neurological Exam: Alert, No Facial Droop, Speech Intact / Clear, Moves All Extremities Equally Additional Neurological Exam Details: Several abnormal facial movements and upper body movements consistent with tardive dyskinesia - Psychiatric Psychiatric Exam: Normal Affect, Normal Mood Assessment and Plan - Patient Problems (1) 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 She may still require an atypical antipsychotic, although I will discuss with the patient's daughter as this can cause increased risk of stroke and heart attack in this age range. For quality of life measure, it may be necessary to continue, but it needs to be explained in terms of the risks and benefits. Given the severity of the tardive dyskinesia within it acute dystonia reaction and inability to swallow with acute dysphasia, I think the patient should remain on Cogentin indefinitely as long as she is on an atypical antipsychotic. Possible penitentiary placement #. In the meantime cognitive evaluation for dementia. Photo / Body Diagrams - Uploaded Photos Uploaded Photos:
--- NOTE | 2016-06-15 16:14 | PT.PROG ---
Progress Note Progress Note: S. Patient agreed to go to the therapy gym. O. Patient ambulated 15 feet around her room then performed standing balance x 2 minutes then ambulated 175 feet to the therapy gym where she used the nu-step x 8 minutes then was left with OT for further therapy. A. Patient tolerated ambulation and balance exercise well. Patient requires min assist with transfers and ambulation. She would continue to benefit from skilled therapy at this time. P. Continue POC.
[2016-06-15] MEDS: QUEtiapine Tab 25 MG TAB PO SCH (20:34)
[2016-06-16] MEDS: BENZTROPINE 1 MG TABLET PO SCH ×3 (08:06→21:02)
--- NOTE | 2016-06-16 10:48 | PT.PROG ---
Progress Note Progress Note: S: Pt reports she feels fine, denies pain at this time. O: Treatment consisted of: 15' NuStep followed by Blue theraband resisted seated hip abduction x20 and B hamstring curls x15 each, seated marching 45", pillow squeezes 15x, STS x5 and ambulation 200' with 4 point walker with CGA and TC for walker management. A: Pt tolerated therex well today, completing all therex at a self selected pace without need for rest breaks between reps. P: Continue to treat BID during the day and once a day on the weekend to address goals and objected established in POC.
--- NOTE | 2016-06-16 12:37 | OT AM DAY ---
Diagnosis : Weakness AM - Occupational Therapy S: The patient reports that she still feels "sick" but she is doing a little bit better. She states that the modified diet has been helping her improve her eating abilities. O: Today the patient dressed herself. She was able to dress upper extremities with min assist and was able to dress lower extremities with mod assist to get pants over the right lower extremity and max assist to get pants over the left lower extremity. The patient needed min assist to come from sit to stand. She was able to bring pants from knee to waist level with min assist. The patient was dependent with donning shoes. The patient then walked to the sink and completed hygiene activities with mod verbal cues and min assist to start the task. She needed max assist to place denture cream on her dentures but was able to place her dentures in independently. A: The patient did participate in ADL tasks today. She was a little more alert than last week when the therapist worked with her. The patient is making gains. P: Continue seeing patient BID during the week and one time per day over the weekend for upper extremity strengthening, ADLs, and overall functional mobility. EDGARD
--- NOTE | 2016-06-16 12:44 | OT PM DAY ---
Diagnosis : Weakness PM - Occupational Therapy S: The patient reports she is doing okay. She did ask a few times during the session, "Why did I get so bad?" and she stated she didn't realize she was getting so bad. The patient also stated that she wanted to work her mind more after the cognitive assessment. O: The patient was able to complete a toilet transfer and toilet hygiene with min assist. She needed min assist to come from sit to stand. She walked to the sink and required verbal cues in order to perform hygiene activities. Downstairs in therapy the patient performed the Alexi Cognitive Assessment ( MoCA). Visuospatial executive: The patient scored 2/5. Naming: The patient scored 3/3. Attention: The patient scored 1/6. Language: The patient scored 1/3. Abstraction: The patient scored 1/2. Delayed recall: The patient scored 3/5. Orientation: The patient scored 6/6. The patient's overall score is 17 out of 30. This is one point below the MILD cognitive impairment, putting her in the MODERATE cognitive impairment range. A: The patient participated as best she could with the MoCA. There were some tasks that were difficult for her. Overall the patient was a good participant. The patient still continues to demonstrates pretty severe tardive dyskinesia. The therapist did try to keep the patient's head still for approximately one minute and the patient stated that this felt so much better than moving her head continuously throughout the day. P: Continue seeing patient BID during the week and one time per day over the weekend for upper extremity strengthening, ADLs, and overall functional mobility. TISHA
--- NOTE | 2016-06-16 13:08 | PDOC(PROG) ---
Date and Time of Service: 06/16/2016, 1306 Interval History: No chest pain. No shortness breath. No nausea or vomiting. No abdominal pain. Movements are not causing dysphasia now. Instead evaluation does reveal a decreased score apparently with by occupational therapy evaluation. Objective : Data - Labs CBC and BMP: 06/12/16 09:46 06/12/16 09:46 Objective : Exam - General General Appearance: No Acute Distress, Cooperative Additional General Exam Details: Vital Signs - Last Taken Temperature 98.1 F 06/16/16 11:22 Pulse Rate 87 06/16/16 11:22 Respiratory Rate 17 06/16/16 11:22 Blood Pressure 117/68 06/16/16 11:22 Pulse Ox 94 06/16/16 11:22 - ENT ENT Exam: Mucous Membranes Moist - Respiratory Respiratory Exam: Clear to Auscultation - Bilaterally, Breathing Non Labored - Cardiovascular Cardiovascular Exam: RRR, No Murmur, No Clicks, No Gallops, No Rubs, No JVD - GI/Abdominal GI/Abdominal Exam: Normal Bowel Sounds, Non Tender, Non Distended, Soft - Extremities Extremities Exam: No Clubbing Present, No Edema Present, No Cyanosis Present - Neurological Neurological Exam: Alert, Oriented x 3, No Facial Droop, Speech Intact / Clear, Moves All Extremities Equally Additional Neurological Exam Details: Several tardive dyskinesia type movements with her head, facial tics, and spastic movements of arms and legs. There is a slight resting tremor on the right-hand side as well. Assessment and Plan - Patient Problems (1) Acute dystonia due to drugs Current Visit: Yes Status: Acute (2) Tardive dyskinesia Current Visit: Yes Status: Acute (3) Failure to thrive Current Visit: Yes Status: Acute Qualifiers: Failure to thrive age range: in adult Qualifier Code(s): (R62.7) Adult failure to thrive (4) Dementia Current Visit: Yes Status: Acute Qualifiers: Dementia type: associated with alcoholism Dementia behavioral disturbance: without behavioral disturbance Qualified Description: Dementia associated with alcoholism without behavioral disturbance Qualifier Code(s ): (F10.97) Alcohol use, unspecified with alcohol-induced persisting dementia (5) Schizoaffective disorder Current Visit: Yes Status: Suspected Qualifiers: Schizoaffective disorder type: depressive Qualified Description: Schizoaffective disorder, depressive type Qualifier Code(s): (F25.1) Schizoaffective disorder, depressive type - Assessment / Plan Additional Assessment/Plan Details: I suspect overall, that the patient likely has a organic brain disorder or dementia related to prior alcohol use. There could be a schizoaffective disorder, but it's just hard to say as this was diagnosed many years ago. Either way, the patient seems to benefit from Seroquel for sleep-wake disturbance cycles in the setting of dementia, and her tardive dyskinesia has improved with Cogentin although I think she could use slightly more and will I will increase to 3 times daily. Continue physical therapy and occupational therapy. jail home placement pending Photo / Body Diagrams - Uploaded Photos Uploaded Photos:
--- NOTE | 2016-06-16 14:56 | PT.PROG ---
Progress Note Progress Note: S. Patient stated that she is very tired this afternoon and doesn't feel that she can go to the therapy gym. O. Patient ambulated 300 feet around the nurses station Patient performed seated exercises in the form of; heel toe raises, marches, and long arc quads all x 10 bilaterally. Patient was left in bed with alarm and call light. A. Patient tolerated ambulation well, she struggles with balance deficits and requires min assist with ambulation and transfers. Patient would continue to benefit from skilled therapy at this time to increase strength and mobility. P. Continue POC.
--- NOTE | 2016-06-16 16:34 | OT.PROG ---
Progress Note Progress Note: S: pt stated that she did need to use restroom before going down for therapy. O: pt was seen in her room, and due to pt's request nursing assisted with her dressing. She completed transfer to bathroom and completed toileting with MOd Ind. transferred to sink and needed Min A with hygiene at sink. She transferred downstairs with CGA for safety and was set up on Nu step. A: pt transfers well but does need assistance at times to complete sit to stands. Needs Vc's to complete certain tasks, such as ADL activity. P: continue per plan of care.
--- NOTE | 2016-06-16 16:39 | OT.PROG ---
Progress Note Progress Note: S: pt stated she was having difficult understanding therapist. Reported having to go to bathroom after she completed walk. O: pt was seen in her room in the p.m. she completed sit to stand with Min A and completed transfer apprx 300 ft before returning to restroom. When pt finished toileting she reported needing assistance with hygiene. Her LE garments needed changed at this point which were completed with mod A. She transferred to sink and completed hygiene there with vc's. Pt then returned to her chair and completed 2x5 sit to stands. A: pt needs vc's to complete certain hygiene tasks. she is weak with sit to stands and may continue to need strengthening of LE' to assist with this functional tasks. P: continue per plan of care
[2016-06-16] MEDS: QUEtiapine Tab 25 MG TAB PO SCH (21:01)
[2016-06-17] MEDS: BENZTROPINE 1 MG TABLET PO SCH ×3 (08:31→20:07)
--- NOTE | 2016-06-17 11:36 | PT.PROG ---
Progress Note Progress Note: S. Patient agreed to go to the therapy gym this morning, she reports that she is feeling a little better today. O. Patient ambulated 175 feet to the therapy gym where she used the nu-step x 10 minutes then ambulated 175 feet back to her room where she was left in chair with alarm and call light. A. Patient struggled with balance this morning, she required min assist with transfers and ambulation this morning, she continues to struggle with balance deficits, and would continue to benefit from skilled therapy at this time. P. Continue POC.
--- NOTE | 2016-06-17 16:05 | PT.PROG ---
Progress Note Progress Note: S. Patient agreed to do therapy this afternoon. O. Patient performed exercises in the form of; heel toe raises, marches, long arc quads, pillow squeezes and clamshells resisted knee flexion all x 15 bilaterally, sit to stands x 5. Patient was left in chair with alarm and call light. A. Patient required frequent verbal cues for encouragement. She required CGA assist with sit to stand transfers. Patient would continue to benefit from skilled therapy to increase strength, mobility and endurance. P. continue POC.
--- NOTE | 2016-06-17 17:11 | OT.PROG ---
Progress Note Progress Note: S: pt stated she could understand me better today. pt appeared to be in good spirits. O; pt was seen in room in the p.m. she completed transfer to bathroom completing toileting with MOd Ind needing min A to complete sit to stand from toilet. Pt needed vc's to complete hygiene at sink. Pt also completed 300 ft worth of transfers with CGA for safety. pt demonstrated no loss of balance today during transfers. A: pt would continue to benefit from therapy to increase/maintain LE strength to completed functional transfers. Continue to monitor and maintain CGA for transfers as she remains a fall risk. P: continue per plan of care.
[2016-06-17] MEDS: QUEtiapine Tab 25 MG TAB PO SCH (20:07)
--- NOTE | 2016-06-17 21:38 | PDOC(PROG) ---
Date and Time of Service: 06/17/2016, 11:30 Interval History: No chest pain and no shortness breath. Still swallowing well. Feels like her emotions and tardive dyskinesias somewhat improved. She does not recall when she was diagnosed with schizophrenia. Objective : Data - Labs CBC and BMP: 06/12/16 09:46 06/12/16 09:46 Objective : Exam - General General Appearance: No Acute Distress, Cooperative Additional General Exam Details: Vital Signs - Last Taken Temperature 97.0 F 06/17/16 20:08 Pulse Rate 76 06/17/16 20:08 Respiratory Rate 24 06/17/16 20:08 Blood Pressure 125/54 06/17/16 20:08 Pulse Ox 96 06/17/16 20:08 - Eye Eye Exam: No Scleral Icterus - Respiratory Respiratory Exam: Clear to Auscultation - Bilaterally, Breathing Non Labored - Cardiovascular Cardiovascular Exam: RRR, No Murmur, No Clicks, No Gallops, No Rubs, No JVD - GI/Abdominal GI/Abdominal Exam: Normal Bowel Sounds, Non Tender, Non Distended, Soft - Extremities Extremities Exam: No Clubbing Present, No Edema Present, No Cyanosis Present - Neurological Neurological Exam: Alert, Oriented x 3, No Facial Droop, Speech Intact / Clear, Moves All Extremities Equally Assessment and Plan - Patient Problems (1) Tardive dyskinesia Current Visit: Yes Status: Acute (2) Acute dystonia due to drugs Current Visit: Yes Status: Resolved (3) Failure to thrive Current Visit: Yes Status: Resolved Qualifiers: Failure to thrive age range: in adult Qualifier Code(s): (R62.7) Adult failure to thrive (4) Dementia Current Visit: Yes Status: Acute Qualifiers: Dementia type: associated with alcoholism Dementia behavioral disturbance: without behavioral disturbance Qualified Description: Dementia associated with alcoholism without behavioral disturbance Qualifier Code(s ): (F10.97) Alcohol use, unspecified with alcohol-induced persisting dementia (5) Schizoaffective disorder Current Visit: Yes Status: Suspected Qualifiers: Schizoaffective disorder type: depressive Qualified Description: Schizoaffective disorder, depressive type Qualifier Code(s): (F25.1) Schizoaffective disorder, depressive type - Assessment / Plan Additional Assessment/Plan Details: Patient seems to be doing much better from her tardive dyskinesia standpoint. Psychosis seems very well controlled on Seroquel. The patient does not have any significant paranoia today. She has evaluations that are being done today by [facility] and is still pending a public health nurse evaluation, intermediate facility placement likely soon. Photo / Body Diagrams - Uploaded Photos Uploaded Photos:
[2016-06-18 06:50] VITALS: RESP 18
[2016-06-18] MEDS: BENZTROPINE 1 MG TABLET PO SCH (09:07)
--- NOTE | 2016-06-18 09:57 | OT AM DAY ---
Diagnosis : Weakness AM - Occupational Therapy S: The patient completed a shower with occupational therapy. O: Today the patient was able to doff her shirt with min assist and she was able to doff her undershirt with min assist. The patient had difficulty taking off shirts that went overhead. The patient doffed her brief and pants with min assist for balance to knee level and needed mod assist to get pants from knee level to her feet. She was able to doff 50% of her sock on the right side but was dependent with her left side. The patient was able to shower self with max assist for washing the back. She was able to wash the anterior part of her body. She needed assistance from mid calf to her foot. She needed mod assist with washing her hair. The patient used grab bar to stand up and required min assist and cues for balance. She was able to dry herself off minus her back, feet, and hair; she was dependent with those three body parts. The patient was able to don undershirt with max assist as she had to go overhead. She was able to don right lower extremity of pants but needed max assist with left lower extremity. She needed min assist for balance to get pants from knee to waist level. The patient was dependent with donning socks. The patient then walked to her room and stood in front of the sink x4 minutes in order to work on standing balance and hygiene activities. She required mod assist for brushing her hair. While standing at sink we also worked on trying to squeeze her denture cream onto her dentures. The patient was not able to do this secondary to hand weakness. Downstairs in therapy we worked on hand strengthening activities including power web, foam block, and digi-flex x2 minutes with bilateral hands. A: The patient tolerated today's activities well. 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 P: Continue seeing patient BID during the week and one time per day over the weekend for upper extremity strengthening, ADLs, and overall functional mobility. MTDD
[2016-06-18 13:05] VITALS: TEMP 98.9
--- NOTE | 2016-06-18 13:05 | DCSUMMARY ---
Hospitalization Summary Admit Date: 06/10/16 Discharge Date: 06/18/16 Primary Diagnosis:: acute dystonia due to Risperdal Secondary Diagnosis:: Tardive dyskinesia and schizoaffective disorder and dementia Hospital Course: This very pleasant 81-year-old female that was brought in for evaluation of some increased facial movements, weakness and memory problems, and she been started on Risperdal or resumed Risperdal therapy for a diagnosis of schizoaffective disorder. The patient had a history of intermittent paranoia and isolation from the community and she was admitted for further evaluation. Risperdal was discontinued and the patient was placed on Seroquel and Cogentin to help combat tardive dyskinesia symptoms. This wasn't suggestion and phone consultation with psychiatrist in [place]. The patient has done very well, no longer is having dysphagia, and her dystonia is improved. Her tardive dyskinesia remains, but movements are better and Cogentin 3 times a day. The patient requested half-way, and she certainly meets the criteria. Discussed with her daughter, Emely, who was in favor of this as well. No other major medical issues occurred during the patient's hospital stay. The patient had physical therapy and a Patient with therapy and they did some modifications for utensils for the patient to eat. Today, patient denies any chest pain, shortness breath, nausea or vomiting, or problems with swallowing. Assessment and Plan: 1. As per discharge assessments noted 2. Disposition: Patient is discharged to [facility] 3. Condition on discharge, stable and improved. 4. Diet: regular diet 5. Activities: resume normal activities 6. Follow-Up: 1. Dr. Wilson in the next week. 2. 7. Medications at the Time of Discharge: Home Medications Medication Instructions Recorded Confirmed Type Acetaminophen [Tylenol] 650 mg PO Q6H PRN #120 tablet.sa 06/18/16 Rx Benztropine Mesylate [Cogentin] 1 mg PO TID tab 06/18/16 Rx QUEtiapine Tab [SEROquel Tab] 25 mg PO BEDTIME tab 06/18/16 Rx 8. Time, care, counseling and coordination of care for this discharge is less than 30 minutes. Exam - Vitals Vital Signs: Vital Signs Vital Signs - Last Taken Temperature 98.9 F 06/18/16 13:00 Pulse Rate 87 06/18/16 13:00 Respiratory Rate 18 06/18/16 13:00 Blood Pressure 127/46 06/18/16 13:00 Pulse Ox 93 06/18/16 13:00 - General General Appearance: POSITIVE: No Acute Distress, Cooperative - Head Head Exam: POSITIVE: Atraumatic - Eye Eye Exam: POSITIVE: No Scleral Icterus - ENT ENT Exam: POSITIVE: Mucous Membranes Moist - Respiratory Respiratory Exam: POSITIVE: Clear to Auscultation - Bilaterally, Breathing Non Labored - Cardiovascular Cardiovascular Exam: POSITIVE: RRR, No Murmur, No Clicks, No Gallops, No Rubs, No JVD - GI/Abdominal GI/Abdominal Exam: POSITIVE: Normal Bowel Sounds, Non Tender, Non Distended, Soft - Extremities Extremities Exam: POSITIVE: No Clubbing Present, No Edema Present, No Cyanosis Present - Neurological Neurological Exam: POSITIVE: Alert, No Facial Droop, Speech Intact / Clear, Moves All Extremities Equally Additional Neurological Exam Details: Cardiac dyskinesia noted with face and lips. Note that a lot of these dyskinetic movements seem to minimalize on exam, for example listening to lungs and so forth. Data Perinent Studies: Laboratory Results 06/10/16 06/10/16 06/12/16 Range/Units 10:15 17:30 09:46 WBC 9.85 8.22 (4.8-10.8) 10^3/uL RBC 4.90 4.90 (4.20-5.40) 10^6/uL Hgb 14.8 14.8 (12.0-16.0) g/dL Hct 43.6 44.2 (37.0-47.0) % MCV 89.0 90.2 (81-99) FL MCH 30.2 30.2 (27-31) PG MCHC 33.9 33.5 (33-37) g/dL RDW Std Deviation 45.2 46.4 (39-50) fL RDW Coeff of Jacoby 14.2 14.3 (11.5-14.5) % Plt Count 276 264 (140-350) 10*3/uL MPV 9.4 9.2 (7.4-12.2) FL Immature Gran % (Auto) 0.1 0.1 (0-5) % Neut % (Auto) 82.4 H 79.7 (50-80) % Lymph % (Auto) 9.7 L 10.0 (10-50) % Canyon % (Auto) 7.0 7.5 (5-15) % Eos % (Auto) 0.6 2.2 (0-8) % Baso % (Auto) 0.2 0.5 (0-1) % Immature Gran # (Auto) 0.01 0.01 10*3/UL Neut # (Auto) 8.11 6.55 10*3/UL Lymph # (Auto) 0.96 0.82 10*3/uL [place] # (Auto) 0.69 0.62 (0.3-0.8) 10*3/UL Eos # (Auto) 0.06 0.18 10*3/UL Baso # (Auto) 0.02 0.04 10*3/UL WBC Morphology Comment Normal morphology Normal morphology (NORM) Plt Morphology Comment Normal morphology Normal morphology (NORM) RBC Morph Comment Normal morphology Normal morphology (NORM) Sodium 140 143 (135-145) meq/L Potassium 4.1 4.0 (3.8-5.2) meq/L Chloride 103 108 (98-112) meq/L Carbon Dioxide 24 26 (23-33) meq/L Anion Gap 13 9 (5-20) BUN 21 14 (7-22) mg/dL Creatinine 0.7 0.7 (0.50-1.20) mg/dL Estimated GFR (>60 ml/min/1.73m(2)) BUN/Creatinine Ratio 30.00 H 20.00 (6-20) Glucose 153 H 76 L (78-110) mg/dL Calculated Osmolality 295.0 H 295.0 H (267-292) mOsm/kg Calcium 9.7 8.6 L (8.7-10.7) mg/dL Magnesium 2.0 (1.6-2.4) mg/dL Total Bilirubin 0.6 0.5 (0.3-1.2) mg/dL AST 22 22 (8-39) IU/L ALT 17 17 (9-52) IU/L Alkaline Phosphatase 46 45 (38-126) IU/L Troponin I < 0.012 < 0.012 (< 0.040) ng/mL Total Protein 7.2 6.8 (6.1-8.0) g/dL Albumin 4.0 3.8 (3.5-4.8) g/dL Globulin 3.1 3.1 (2.50-4.10) g/dL Albumin/Globulin Ratio 1.20 L 1.20 L (1.3-2.0) mg/g TSH 4.13 (0.2700-4.2000) uIU/mL Patient Problems - Patient Problem List (1) Tardive dyskinesia Current Visit: Yes Status: Acute (2) Acute dystonia due to drugs Current Visit: Yes Status: Resolved (3) Failure to thrive Current Visit: Yes Status: Resolved Qualifiers: Failure to thrive age range: in adult Qualifier Code(s): (R62.7) Adult failure to thrive (4) Dementia Current Visit: Yes Status: Acute Qualifiers: Dementia type: associated with alcoholism Dementia behavioral disturbance: without behavioral disturbance Qualified Description: Dementia associated with alcoholism without behavioral disturbance Qualifier Code(s ): (F10.97) Alcohol use, unspecified with alcohol-induced persisting dementia (5) Schizoaffective disorder Current Visit: Yes Status: Suspected Qualifiers: Schizoaffective disorder type: depressive Qualified Description: Schizoaffective disorder, depressive type Qualifier Code(s): (F25.1) Schizoaffective disorder, depressive type
--- NOTE | 2016-06-20 14:21 | OT AM DAY ---
Diagnosis : Weakness AM - Occupational Therapy S: Staff reports that Basia will more than likely go to the [facility] this afternoon. O: Today the patient worked on dressing self. She needed mod assist in order to doff shirt. She has difficulty reaching the shirt above her head with her upper extremities. The patient then worked on doffing her pants; she needed mod assist to get the pants from the knee to the foot level. The patient had to go to the bathroom; we worked on a bathroom transfer. The patient walked to the bathroom with min assist for balance. While sitting on the toilet the patient needed mod assist for toilet hygiene; she did attempt toilet hygiene but needed assistance to finish. The patient was then able to ambulate to the sink where she completed standing x5 minutes for hygiene. A: The patient is still demonstrating balance difficulties. She reports that her eating is going better. The patient still needs assistance with ADLs. P: Continue seeing patient BID during the week and one time per day over the weekend unless [facility]. TISHA
--- NOTE | 2016-06-20 14:24 | PT AM DAY ---
Diagnosis : Weakness AM - Physical Therapy S: The patient states she is not feeling up to going down to the therapy gym; however, she is willing to go for a walk. O: The patient ambulated 500 feet around the nurse's station. She was left in her room with alarm on and call light within reach. A: The patient continues to make gains with endurance and mobility; however , she continues to have slight balance deficits and would continue to benefit from skilled therapy. The patient required stand by assist. P: The patient has been discharged to the [facility]. TISHA
== END 2016-06-18 13:43 | DRG 93 ==
LOC: ER 17:04 → MED/SURG 18:35 → OBSVTOIN 06-11 15:55
PROVIDERS: ADMIT Internal Medicine; ATTEND Internal Medicine
DX: G24.02 Drug induced acute dystonia (principal); R62.7 Adult failure to thrive; F10.21 Alcohol dependence, in remission; R53.1 Weakness; T43.595A Adverse effect of other antipsychotics and neuroleptics, initial encounter; G24.01 Drug induced subacute dyskinesia; F25.9 Schizoaffective disorder, unspecified; F03.90 Unspecified dementia, unspecified severity, without behavioral disturbance, psychotic disturbance, mood disturbance, and anxiety
CPT/HCPCS: 36415; 73030; 80053; 83735; 84443; 84484; 85025; 90656; 93005; 93010; 94761; 96360; 97110; 97161; 97166; 97530; 97535; 97750; 99284; J3411; J3475; J7030

== ENCOUNTER 2016-08-26 00:45 | Emergency (ER) | payer OTHER ==
[2016-08-26] MEDS ORDERED: TETANUS AND DIPHTHERIA TOXOID 0.5 ML INJ IM ONE (01:06)
[2016-08-26] MEDS ORDERED: Lidocaine 1% 10 MG/ML - 20 ML VIAL SUBCUT ONE (01:06)
--- NOTE | 2016-08-26 01:56 | PDOC ---
Fall HPI - General Chief Complaint: Integumentary Stated Complaint: Left 3rd digit laceration Date Seen by Provider: 08/26/16 Time Seen by Provider: 01:00 Source: POSITIVE: Patient Exam Limitations: POSITIVE: No limitations Nurse's Notes Reviewed & Considered: Yes - History of Present Illness Initial Comments: The patient is an 81-year-old female who currently resides at the long term. She apparently fell and cut her left middle finger. She also hit her left knee however she denies any knee pain and is able to bear weight on the left leg without any difficulty. She is unsure when she last had a tetanus shot. She did not hit her head and denies any other associated injuries or complaints. Have you received a tetanus shot in the past 10 years?: No - Patient Home Medications Home Medications: Home Medications Acetaminophen [Tylenol] 2 tab BC Q6H PRN #120 tab 06/18/16 Quetiapine Fumarate [Seroquel] 12.5 mg PO BID #60 tab 07/21/16 - Patient Allergies Allergies/Adverse Reactions: Allergies Allergy/AdvReac Type Severity Reaction Status Date / Time No Known Allergies Allergy Verified 08/26/16 00:57 Past Medical History - heen HEENT History: Denies History Cardiovascular History: Denies History Respiratory History: Denies History Gastrointestinal History: Denies History Genitourinary History: Denies History Endocrine History: Denies History Musculoskeletal History: Denies History Prosthesis or Implant: No Neurological History: Other (please comment) 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 Blood Disorders: Denies History Psychiatric History: Denies History History of Sexually Transmitted Diseases: No Cancer History: Denies History History of MDRO: Unknown Alcohol Use: Other Substance Use Type: None Previous Surgical History: Yes Type / Date of Surgery: hysterectomy Anesthesia Reactions: No Malignant Hyperthermia: No Significant Family History: No pertinent family hx Past Medical History Reviewed: Reviewed - No Changes ROS - Limitations ROS Limitations: No Limitations (Review of systems otherwise noncontributory) Fall Physical Exam - General Appearance General Appearance: POSITIVE: Alert, Cooperative, No Acute Distress - HEENT HEENT: POSITIVE: Head Inspection Nml - Neck Neck: POSITIVE: Painless ROM, Trachea Midline - Respiratory / CVS Respiratory / CVS: POSITIVE: Breath Sounds Normal, No Respiratory Distress, Heart Sounds Normal, Regular Rate/Rhythm - Neuro / Psych Neuro / Psych: POSITIVE: Other (Patient has a movement disorder) - Extremities Additional Extremities Details: Examination left knee does reveal a superficial abrasion to the medial aspect of the knee with some associated ecchymosis, no bony tenderness or deformity with good range of motion. Examination of the left middle finger reveals a 1.5 cm laceration to the palmar surface of the mid finger, normal flexion and extension of the finger, good cap refill and sensation in the fingertip Procedures - Laceration/Wound Repair Did patient have a laceration repair: Yes Site of Laceration/Wound: Left middle finger Wound Length (cm): 1.5 Wound's Depth, Shape: Into subcutaneous tissue, Linear Distal CMS: Yes Skin Prep: Betadine Prep Local Anesthesia Used - Indicate Amt Used in Comment: Lidocaine 1%: Yes Wound Explored: Clean Wound Repaired With: Sutures single layer Suture Size/Type: 5:0, Ethilon Number of Sutures: 4 Sterile Dressing Applied?: Yes Fall Progress - Patient's Progress MDM / ED Course: The laceration was repaired and wound care instructions were discussed. The patient does have a superficial abrasion and contusion to her left knee as well. Her tetanus was updated with dT. She is advised to return to the emergency room if she develops increased pain, sign of wound infection, any worsening or change in symptoms. She is advised to have sutures removed in approximately 10 days. - Consult Counseled: POSITIVE: Patient, Family, RE: DX, RE: Need for F/U Patient Care Time - Estimated PCT Patient Care Time (In Minutes): 20 Vital Signs - VS Reviewed Vital Signs Reviewed: Yes (written nursing documentation reviewed) Discharge Clinical Impression: Finger laceration, Knee contusion Discharge Disposition: Discharged to Home (Back to the long term) Condition: Stable Patient Instructions Given at Discharge: Laceration (ED), Contusion in Adults ( ED) Additional Instructions: The laceration on the left third finger has been repaired. Keep the dressing in place for the first 24 hours. After that the wound can be covered with a bandage during the day and a thin layer of antibiotic ointment and left open at night. Return to the emergency room if sign of wound infection, worsening pain , any worsening or change in symptoms. Sutures should be removed in 10 days. Follow Up With: LUIS EDUARDO SANDERS [Primary Care Provider] -
[2016-08-26 03:26] VITALS: RESP 20; TEMP 97.3
== END 2016-08-26 01:55 | disposition home or self-care (01) ==
LOC: ER 00:45
DX: S61.213A Laceration without foreign body of left middle finger without damage to nail, initial encounter (principal); S80.212A Abrasion, left knee, initial encounter; W18.39XA Other fall on same level, initial encounter; Y92.129 Unspecified place in nursing home as the place of occurrence of the external cause
CPT/HCPCS: 12001; 90471; 90714; 99282; J2001